=== PATIENT | female | born 1955 ===

== ENCOUNTER 2024-07-21 05:34 | Day surgery (SDC) | payer OTHER ==
[2024-07-15 09:30] VITALS: BP 173/94
[~2024-07-21] VITALS: Ht 149.9 cm; Wt 88.0 kg
[~2024-07-21 05:34] MED LIST: ATORVASTATIN CA10 MG PO; GLUMETZA500 MG PO; ZESTRIL2.5 MG PO
[2024-07-21] MEDS ORDERED: CEFAZOLIN SODIUM 1,000 MG VIAL IV ONE (13:15)
[2024-07-21] MEDS ORDERED: SUGAMMADEX SODIUM 200 MG/2 ML VIAL IV ONE (13:30)
== END 2024-07-21 16:15 | disposition home or self-care (01) ==
LOC: CIR.AMB 05:34
PROVIDERS: ATTEND Surgery
DX: D24.2 Benign neoplasm of left breast (principal); D48.62 Neoplasm of uncertain behavior of left breast; N60.82 Other benign mammary dysplasias of left breast; E11.9 Type 2 diabetes mellitus without complications